=== PATIENT | male | born 1970 | race Caucasian/White ===

== ENCOUNTER 2023-06-16 20:59 | Inpatient (IN) | payer OTHER, SELFPAY ==
[2023-06-16 16:48] VITALS: BP 145/94
[2023-06-16 17:34] LABS: Urine Albumin 2+ (Neg - Trace); Urine Bilirubin Negative (Negative); Urine Character Very Cloudy (Clear); Urine Color Yellow; Urine Glucose Negative (Negative); Urine Ketone Negative (Negative); Urine Leukocyte 2+ (Negative); Urine Nitrite Negative (Negative); Urine Occult Blood 2+ (Negative); Urine Urobilinogen Negative (Neg - 1+)
[2023-06-16 17:43] LABS: Urine Bacteria Many (Negative); Urine Red Blood Cell 0-2 /HPF (0-2); Urine White Cell 30-40 /HPF (0-5)
[2023-06-16] MEDS: NSS 1000 IV (17:50)
[2023-06-16] MEDS: ZOFRAN 4 MG IV (17:50)
--- NOTE | 2023-06-16 17:53 | ED.GENMED ---
History of Present Illness
General
Chief Complaint: Male Genito-Urinary Symptoms
Source: patient
Time Seen by Provider: 06/16/23 17:03
Travel History
Have you had any contact with someone who has COVID-19?: No
Do you have any symptoms of coronavirus? Fever > 100 degrees, chills, cough, shortness of breath, sore throat, loss of taste or smell, muscle aches, or headache?: No
History of Present Illness
History of Present Illness:
52-year-old male with past medical history of hypertension, hyperlipidemia, previous urinary tract infection status post nephrectomy and urostomy with reversal presenting to the emergency department for evaluation after he started with urinary
frequency/urgency/dysuria, cloudy malodorous urine which started yesterday, today had chills and right-sided flank pain accompanied with dry heaves no vomiting. Patient notes that he had completed urinary tract infections in the past and his been
on multiple antibiotics before for urinary tract infections. He notes his last treated UTI was about 6 months ago. He denies any testicular pain or edema, abdominal pain or any other concerns presently. Has not been on any antibiotics recently.
Past History
Past History
ED Past Medical History: HTN, Hypercholesterolemia and Other (UTI)
ED Past Surgical History: Bowel resection and Urological
Social History
Tobacco: Non-smoker
Alcohol: None
Drug: None
Personal:
Living: with family
Employment: Employed
Review of Systems
Review of Systems
All Other Systems: ROS reviewed and negative except as documented in HPI and ROS
Phy Exam
Physical Exam
Physical Exam:
GENERAL: Alert , ill-appearing
EYE: clear conjunctiva b/l
HEAD: NCAT
ENT: o/p clr, mmm.
CARDIAC: Borderline tachycardic rate and rhythm.
LUNGS: Clear breath sounds bilaterally, no acute respiratory distress, no wheezes/rales/rhonchi
ABDOMEN: Soft, without focal tenderness, no r/g, mild right CVA tenderness, negative Mcclain sign, no tenderness at McBurney's point
NEUROLOGICAL: Alert and oriented
SKIN: Warm and dry, skin intact.
MUSCULOSKELETAL: No edema, well perfused.
PSYCH: Normal and appropriate interaction.
Scores
Heart Failure Risk
Heart Failure Risk Score: Not Applicable
Heart Score for Chest Pain Patients
STEMI patient?: Not applicable
Withdrawal Assessment of Alcohol
Withdrawal Assessment Completed?: Not applicable
Course
Orders/Labs/Results
Orders:
Orders
06/16/23 17:21
Urinalysis Reflex To Culture Routine
Date Specimen was Collected: 06/16/23
Time Specimen was Collected: 16:59
Urine Microscopic Reflex Cult Routine
Urine Culture Routine
[facility] Source: U
Specimen Description:
Date Specimen was Collected: 06/16/23
Time Specimen was Collected: 16:59
06/16/23 17:39
0.9% Sodium Chloride 1000 ml [Nss] 1,000 ml IV BOLUS
Ondansetron Injectable [Zofran] 4 mg IV NOW STA
06/16/23 17:41
CT Abd/pel Without Iv Or Oral Urgent
Comment:
Reason For Exam: flank pain, fever
06/16/23 17:46
Blood Culture Q30M
[facility] Source: Blood/Venous
Specimen Description:
Blood Culture Q30M
[facility] Source: Blood/Venous
Specimen Description:
06/16/23 17:48
Complete Blood Count/With Diff Urgent
Comprehensive Metabolic Panel Urgent
Lactic Acid Q4H
Comment: CANCEL 2nd LACTIC ACID IF 1st LACTIC ACID IS LESS THAN 2
06/16/23 19:26
CefTRIAXone [Rocephin] 1,000 mg IV NOW STA
06/16/23 20:23
Acetaminophen [Tylenol] 1,000 mg PO NOW STA
Metoclopramide [Reglan] 10 mg IV NOW STA
Abnormal Lab Results
06/16/23 06/16/23
17:21 17:48
WBC 13.0 H 10^3/uL
(4.8-10.8)
RBC 4.42 L 10^6/uL
(4.70-6.10)
Hct 37.0 L %
(39.0-52.0)
MPV 11.4 H fL
(7.4-10.4)
Absolute Neuts (auto) 11.1 H 10^3/uL
(1.4-6.5)
Absolute Lymphs (auto) 0.9 L 10^3/uL
(1.2-3.4)
Absolute Monos (auto) 0.9 H 10^3/uL
(0.1-0.6)
Neutrophils % 85.7 H %
(42.2-75.2)
Lymphocytes % 6.8 L %
(20.5-51.1)
Carbon Dioxide 20 L mmol/L
(22-30)
Glucose 116 H mg/dl
(70-99)
Total Bilirubin 1.5 H mg/dl
(0.2-1.3)
Ur Occult Blood Reflex 2+ A
(Negative)
Leukocyte Esterase Rfl 2+ A
(Negative)
Urine WBC (Reflex) 30-40 A /HPF
(0-5)
Urine Bacteria (Reflex) Many A
(Negative)
Urine Albumin (Reflex) 2+ A
(Neg - Trace)
06/16/23 17:48
06/16/23 17:48
Vital Signs
Initial and Last Documented VS:
Initial Vital Signs
Temp Pulse Resp BP Pulse Ox
100 F 106 18 145/94 99
06/16/23 16:48 06/16/23 16:48 06/16/23 16:48 06/16/23 16:48 06/16/23 16:48
Last Documented Vital Signs
Temp Pulse Resp BP Pulse Ox
97.7 F 85 18 138/79 99
06/16/23 20:03 06/16/23 20:03 06/16/23 20:03 06/16/23 20:03 06/16/23 20:03
MDM/Problems Addressed
Differential Diagnosis Includes:
Cystitis, pyelonephritis, infected kidney stone, acute kidney injury
MDM/Problems Addressed:
52-year-old male presenting department for evaluation of suspected urinary tract infection. On arrival here patient was found to be febrile and mildly tachycardic. Given his history I do have significant concern for
urosepsis/bacteremia/pyelonephritis. Will check labs including blood cultures and lactic acid. Urinalysis was already from triage. Will order a noncontrast CT scan. Disposition pending but will have low threshold to admit.
Chronic conditions affecting care: Other (Previous urostomy is in chronic UTIs)
*Radiology
Radiology exam reviewed: radiology read reviewed
*Pulse Oximetry
Patient hypoxic: no
*Critical Care Note
Total Time (30-74mins, 75-104mins- exclusive of procedures): Not Applicable
Data Reviewed
Review of Other/Old Records Reveals: Labs
Source: patient
Patient Management
Discussion with other providers: Hospitalist and Plant Physiologist
Escalation/DeEscalation of care consider admission/obs:
Patient CT scan shows the following:
IMPRESSION:
1. 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 Severe distention of the right intrarenal collecting system, right renal pelvis, and right proximal ureter. Mild right perinephric inflammation suggesting ACUTE RIGHT PYELONEPHRITIS
superimposed upon a chronic right ureteral obstruction and chronic distention of the right intrarenal collecting system.
2. � Tiny 1 mm calcification in the right side of the pelvis which could be located in the right distal ureter or outside of the ureter (calcified phlebolith).
3. 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
4. � Mild diffuse urinary bladder wall thickening with mild surrounding inflammation suggesting ACUTE CYSTITIS.
5. � Severe diffuse hepatic steatosis.
6. � Mild splenomegaly.
7. � Sacral dysraphism with partial sacral agenesis.
8:19 PM: I notified hospitalist team who accepts for continued evaluation and treatment. Urology was also notified and will evaluate patient in the morning. They agree with plan for IV antibiotics and if patient's creatinine is rising or he
continues to feel unwell urology believes patient may need IR to place a nephrostomy tube. Patient is in agreement with this treatment plan.
ED Attending Note
-
Portions of this chart may have been created with voice recognition software.� Occasional wrong word or��sound alike� substitutions may have occurred due to the inherent limitations of voice recognition software.
Discharge Plan
Departure
Patient Disposition: Admit
Date of Disposition: 06/16/23
Time of Disposition: 20:20
Presentation/result/management discussed w/ accepting MD/DO: Hospitalist
Discharge Problem:
Acute pyelonephritis
Prescriptions:
No Action
atorvastatin 20 mg tablet
20 mg PO DAILY
allopurinol 100 mg tablet
100 mg PO BID
sildenafil 100 mg tablet
100 mg PO DAILY PRN (Reason: ed)
spironolactone 25 mg tablet
25 mg PO DAILY
methenamine hippurate 1 gram tablet
1 g PO BID@0800,1730
amlodipine 10 mg tablet
10 mg PO DAILY
losartan 100 mg tablet
100 mg PO DAILY
Qulipta 10 mg tablet
10 mg PO DAILY
Referrals:
Juan Stevens MD [Family Provider] -
Interventions
Interventions:
*Risk Screen - Suicide Last Done: 06/16/23 16:48
*General Assessment Last Done: 06/16/23 16:48
*Neglect/Abuse Screening Last Done: 06/16/23 16:48
*ED COVID-19 Vaccine History Last Done: 06/16/23 16:51
ED-Male Genitourinary Assessment Last Done: 06/16/23 17:23
[2023-06-16 18:29] LABS: % Basophils 0.2 % (0-2); % Eosinophils 0.1 % (0-6); % Immature Granulocytes 0.3 % (0-0.5); % Lymphocytes 6.8 % (20.5-51.1); % Monocytes 6.9 % (1.7-9.3); % Neutrophils 85.7 % (42.2-75.2); Absolute Lymphocytes 0.9 10^3/uL (1.2-3.4); Absolute Monocytes 0.9 10^3/uL (0.1-0.6); Absolute Neutrophils 11.1 10^3/uL (1.4-6.5); Hemoglobin 13.1 g/dL (13.0-18.0); Mean Corp Hgb Conc. 35.4 g/dL (33.0-37.0); Mean Corpuscular Hgb 29.6 pg (27.0-31.0); Mean Corpuscular Volume 83.7 fL (80.0-94.0); Mean Platelet Volume 11.4 fL (7.4-10.4); Nucleated Red Blood Cells % 0 % (-); Platelet Count 138 10^3/uL (130-400); Red Blood Cell Count 4.42 10^6/uL (4.70-6.10); Red Cell Dist. Width 13.2 % (11.5-14.5)
[2023-06-16 18:39] LABS: ALT (SGPT) 16 U/L (0-50); AST (SGOT) 23 U/L (17-59); Albumin 4.7 g/dl (3.5-5.0); Alkaline Phosphatase 90 U/L (38-126); Blood Urea Nitrogen 14 mg/dl (9-20); Calcium 8.9 mg/dl (8.4-10.2); Carbon Dioxide 20 mmol/L (22-30); Chloride 106 mmol/L (98-107); Glucose 116 mg/dl (70-99); Potassium 3.7 mmol/L (3.5-5.1); Sodium 135 mmol/L (135-145); Total Bilirubin 1.5 mg/dl (0.2-1.3); Total Protein 7.4 g/dl (6.3-8.2); eGFR > 60.00
[2023-06-16 18:42] LABS: Lactic Acid 1.2 mmol/L (0.7-2.0)
[2023-06-16] MEDS: ROCEPHIN 1000 MG IV (19:31)
[2023-06-16 20:03] VITALS: BP 138/79
--- NOTE | 2023-06-16 20:44 | HPS.HSE ---
Family Physician
-
Family Physician: Juan Stevens
Chief Complaint
-
urinary burning
History of Present Illness
52-year-old male past medical history of solitary right kidney, prior urinary tract infection status post right nephrostomy/urostomy with reversal, hypertension, hyperlipidemia, small bowel obstruction status post bowel resection, IBS, migraines,
presenting for urinary frequency/urgency and burning with urination, cloudy malodorous urine which started yesterday. Today he had chills and fever and right-sided flank pain/abdominal pain associated dry heaving without vomiting. He has had many
frequent UTIs in the past most recently 6 months ago. He denies any abdominal pain. He denies any blood in the urine. He is making less urine than usual.
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 He he had obstruction secondary to stricture of the right kidney status post nephrostomy/urostomy with reversal when he was very young around 3 years old.
Medical History
Past Medical History
Past Medical History: Reports Other (solitary right kidney, prior urinary tract infection status post right nephrostomy/urostomy with reversal, hypertension, hyperlipidemia, small bowel obstruction status post bowel resection, IBS, migraines)
Past Surgical History: Reports Urological
Social History
Tobacco: Non-smoker
Alcohol: None
Drug: None
Family History
Family History: Not pertinent
Allergies / Home Medications
Allergies reflects when Allergies were last updated in [facility].
Home Medications with original date entered in [facility]
Allergy/Medication List:
Allergies
Allergy/AdvReac Type Severity Reaction Status Date / Time
ciprofloxacin [From Cipro] Allergy Unknown Verified 06/16/23 16:49
clindamycin Allergy Unknown Verified 06/16/23 16:49
sumatriptan [From Imitrex] Allergy Unknown Verified 07/20/09 13:42
sumatriptan succinate Allergy Unknown Verified 07/20/09 13:42
[From Imitrex]
Home Medications
allopurinol 100 mg tablet 200 mg PO DAILY 06/16/23
amlodipine 10 mg tablet 10 mg PO HS 06/16/23
ascorbic acid (vitamin C) 1,000 mg tablet (Vitamin C) 1,000 mg PO BID 06/16/23
atogepant 10 mg tablet (Qulipta) 10 mg PO DAILY 06/16/23
atorvastatin 20 mg tablet 20 mg PO QPM 06/16/23
dicyclomine 10 mg capsule 10 mg PO QID PRN ibs flare up 06/16/23
losartan 100 mg tablet 100 mg PO DAILY 06/16/23
methenamine hippurate 1 gram tablet 1 g PO BID@0800,1730 06/16/23
sildenafil 100 mg tablet 100 mg PO DAILY PRN ed 06/16/23
spironolactone 25 mg tablet 25 mg PO DAILY 06/16/23
Review of Systems
-
History Source: Patient
A 12 point ROS was completed and negative except as noted: Yes
Constitutional: Reports No Symptoms
EENT: Reports No Symptoms
Respiratory: Reports No Symptoms
Cardiac: Reports No Symptoms
Abdomen/GI: Reports See HPI
: Reports See HPI
Musculoskeletal: Reports No Symptoms
Skin: Reports No Symptoms
Neurological: Reports No Symptoms
Endocrine: Reports No Symptoms
Hematologic/Lymphatic: Reports No Symptoms
Psych: Reports No Symptoms
Physical Exam
Vital Signs
Vital Signs
Temp Pulse Resp BP Pulse Ox
97.7 F 85 18 138/79 99
06/16/23 20:03 06/16/23 20:03 06/16/23 20:03 06/16/23 20:03 06/16/23 20:03
Physical Exam
General: Well Developed, Well Nourished and No Apparent Distress
HEENT: NormoCephalic, Moist mucous membranes and Atraumatic
Respiratory: Clear
Cardiac: S1/S2 and Regular Rhythm; No Murmur or Rub
GI: Soft, Non Tender, Non Distended and Normal Bowel Sounds; No Organomegaly
Rectal: Deferred by Provider
Genito-urinary: Costovertebral angle tend (right )
Musculoskeletal: No Clubbing, No Cyanosis and No Edema
Skin: No Rash
Neuro: Nonfocal/grossly intact
Laboratory Results
-
06/16/23 17:48
06/16/23 17:48
Laboratory Results
Lactic Acid Cancelled 06/16/23 21:45
Total Bilirubin 1.5 mg/dl (0.2-1.3) H 06/16/23 17:48
AST 23 U/L (17-59) 06/16/23 17:48
ALT 16 U/L (0-50) 06/16/23 17:48
Alkaline Phosphatase 90 U/L (38-126) 06/16/23 17:48
Data Reviewed
-
Lab Data: Labs Reviewed by me
Old Records: Reviewed
Impression/Plan
-
IMPRESSION:
PLAN:
# Sepsis (fever at home, leukocytosis ) acute right pyelonephritis/severe right hydroureteronephrosis on chronic right ureteral obstruction in the setting of solitary right kidney
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
-IV fluids
-Urine culture/blood cultures
-Cefepime
-Zofran, Dilaudid for nausea and pain respectively
-N.p.o.
-Urology consulted
-If patient clinically worsens or renal function worsens would potentially need right-sided nephrostomy tube
Essential hypertension
-Continue spironolactone, amlodipine, losartan
Hyperlipidemia
-Continue statin
Gout
-Continue allopurinol
History of small bowel obstruction status post bowel resection
IBS
Migraine history
-Continue Qulipta
Full code
DVT prophylaxis- heparin
N.p.o.
[2023-06-16] MEDS: TYLENOL 1000 MG PO (20:50)
[2023-06-16] MEDS: REGLAN 10 MG IV (20:50)
[2023-06-17 00:09] VITALS: BP 126/77
[2023-06-17 02:19] VITALS: BP 124/72
[2023-06-17] MEDS: NSS 1000 IV ×3 (02:26→17:01)
[2023-06-17] MEDS: NORVASC 10 MG PO ×2 (02:30→21:47)
[2023-06-17] MEDS: MAXIPIME 2000 MG IV ×3 (03:26→23:13)
[2023-06-17 05:47] VITALS: BP 124/75
[2023-06-17 06:14] LABS: % Basophils 0.2 % (0-2); % Eosinophils 0.1 % (0-6); % Immature Granulocytes 0.4 % (0-0.5); % Monocytes 8.1 % (1.7-9.3); % Neutrophils 79.2 % (42.2-75.2); Absolute Immature Granulocytes 0.1 10^3/uL (0-0.05); Absolute Lymphocytes 1.5 10^3/uL (1.2-3.4); Absolute Neutrophils 9.7 10^3/uL (1.4-6.5); Hematocrit 33.9 % (39.0-52.0); Hemoglobin 11.9 g/dL (13.0-18.0); Mean Corp Hgb Conc. 35.1 g/dL (33.0-37.0); Mean Corpuscular Volume 85.4 fL (80.0-94.0); Mean Platelet Volume 11.8 fL (7.4-10.4); Nucleated Red Blood Cells % 0 % (-); Platelet Count 130 10^3/uL (130-400); Red Blood Cell Count 3.97 10^6/uL (4.70-6.10); Red Cell Dist. Width 13.4 % (11.5-14.5); White Blood Cell Count 12.3 10^3/uL (4.8-10.8)
[2023-06-17 06:23] LABS: ALT (SGPT) 15 U/L (0-50); AST (SGOT) 19 U/L (17-59); Albumin 3.8 g/dl (3.5-5.0); Alkaline Phosphatase 81 U/L (38-126); Blood Urea Nitrogen 14 mg/dl (9-20); Calcium 8.1 mg/dl (8.4-10.2); Carbon Dioxide 20 mmol/L (22-30); Chloride 111 mmol/L (98-107); Estimated Creatinine Clearance 85 ml/min; Glucose 122 mg/dl (70-99); Potassium 3.6 mmol/L (3.5-5.1); Sodium 139 mmol/L (135-145); Total Bilirubin 1.6 mg/dl (0.2-1.3); Total Protein 6.2 g/dl (6.3-8.2); eGFR > 60.00
[2023-06-17] MEDS: STERILE WATER FOR INJECTION IV (06:26)
[2023-06-17 07:38] VITALS: BP 130/71
[2023-06-17] MEDS: VITAMIN C 1000 MG PO ×2 (08:41→19:21)
[2023-06-17] MEDS: ALDACTONE 25 MG PO (08:42)
[2023-06-17] MEDS: COZAAR 100 MG PO (08:42)
[2023-06-17] MEDS: ZYLOPRIM 200 MG PO (08:42)
[2023-06-17] MEDS: HEPARIN 5000 UNITS SC ×2 (08:43→19:21)
--- NOTE | 2023-06-17 08:50 | W.PN.URO.CBU ---
Today's Communication / Plan
-
await cs=xs continue prexsent care no dietary resrictons no op room
Assessment / Plan
-
sepsis syndrome waitng cxs but improved H/o uti since age 3 solitary cogenital solitary rt kidney with hydro biut significantly betteroniv abs
Diagnosis
-
Date of Service: June 17, 2023
-
Patient Diagnosis:ascending complex uti in pt withcongenitally malroted solitary rt kidney and h/o utis since age 3 with colovesical fistial aty that time
Post Op Day:
Subjective
-
much better no nausea les pain
Objective
-
Vital Signs
Temp Pulse Resp BP Pulse Ox
98.8 F 60 15 130/71 100
06/17/23 07:38 06/17/23 07:38 06/17/23 07:38 06/17/23 07:38 06/17/23 07:38
Intake and Output
06/16/23 06/17/23 06/18/23
06:59 06:59 06:59
Intake Total 1200 / 1200
Balance 1200 / 1200
Intake:
IV fluids (Total) 1200 / 1200
nss 1200 / 1200
Other:
Number of unmeasured voidings 2
Laboratory Results
06/17/23 05:33
06/17/23 05:33
Review of Systems
-
: Dysuria and Flank Pain
Physical Exam
-
General - well developed, well nourished, no acute distress
Chest - clear bilaterally
Abdomen - soft, non-tender, positive bowel sounds, no CVAT, no incisional pain or distention
Genitalia - normal
Rectal - normal
Skin - warm & dry with no rash
Neuro - AOx3, no motor deficits
Extremities - no clubbing, no cyanosis, no edema
Incision - clean, dry
Dressing - clean, dry, intact
Counseling
-
continue presnet
Care Review
Data Reviewed
Discussed with: Nursing
CT Scan: Image Pers Reviewed
--- NOTE | 2023-06-17 09:24 | EDRN ---
Attending TT to obtain updated diet order. currently NPO but consult was completed
--- NOTE | 2023-06-17 11:38 | CM ---
CM reviewed medical records. CM met with patient in room. Patient confirmed demographics. Patient lives independently with . Patient confirmed history of VN after needing home IV ABTS. Not currently on service. Patient has no history of SNF or
DME. Patient is active with his PCP. Patient uses [facility] in [place] for medication services.
Patient would be agreeable to VN if needed on discharge.
PLAN: Home
--- NOTE | 2023-06-17 11:43 | W.PN.HOSP.TC ---
Today's Communication/Plan
-
Monitor vital signs
see plan
cw abx
follow urine and bcx
Monitor leukocytosis
Urology following
Assessment / Plan
Assessment / Plan
General: Well Developed, Well Nourished and No Apparent Distress
HEENT: NormoCephalic, Moist mucous membranes
Respiratory: Clear
Cardiac: S1/S2 and Regular Rhythm; No Murmur or Rub
GI: Soft, Non Tender, Non Distended
Genito-urinary: right costovertebral angle tenderness
Musculoskeletal: No Edema
Skin: No Rash
Neuro: Nonfocal/grossly intact
Sepsis 2/2 acute right pyelonephritis/severe right hydroureteronephrosis on chronic right ureteral obstruction in the setting of solitary right kidney
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
-Urine culture/blood cultures pending
-cw Cefepime
-Urology following, no plans for any intervention at this time.
CT 06/15 with solitary right kidney with severe right hydro utero nephrosis. Acute right pyelonephritis.
-If patient clinically worsens or renal function worsens would potentially need right-sided nephrostomy tube
Essential hypertension
-Continue spironolactone, amlodipine, losartan
Hyperlipidemia
-Continue statin
Gout
-Continue allopurinol
History of small bowel obstruction status post bowel resection
IBS
Migraine history
-Continue Qulipta
Full code
DVT prophylaxis- heparin
Anticipated Discharge: > 48 hours
Subjective/Interval History
-
Date of Service: June 17, 2023
denies pain
Objective Data
-
Labs:
Laboratory Results
06/17/23
05:33
WBC 12.3 H
Hgb 11.9 L
Hct 33.9 L
Plt Count 130
Sodium 139
Potassium 3.6
Chloride 111 H
Carbon Dioxide 20 L
BUN 14
Creatinine 1.2
Glucose 122 H
Calcium 8.1 L
Total Bilirubin 1.6 H
AST 19
ALT 15
Alkaline Phosphatase 81
Vital Signs:
Vital Signs
Temp Pulse Resp BP Pulse Ox
98.8 F 60 15 130/71 100
06/17/23 07:38 06/17/23 07:38 06/17/23 07:38 06/17/23 07:38 06/17/23 07:38
I&O
06/16/23 06/17/23 06/18/23
06:59 06:59 06:59
Intake Total 1200 / 1200
Balance 1200 / 1200
[2023-06-17] MEDS: STERILE WATER FOR INJECTION 10 ML IV ×2 (12:43→23:14)
[2023-06-17] MEDS: NSS IV (15:20)
[2023-06-17 15:22] VITALS: BMI 37.5
[2023-06-17 15:29] VITALS: BP 135/70
[2023-06-17] MEDS: LIPITOR 20 MG PO (17:01)
[2023-06-17] MEDS: BENTYL 10 MG PO (19:21)
[2023-06-17 23:01] VITALS: BP 114/66
[2023-06-18] MEDS: NSS 1000 IV (01:47)
[2023-06-18 07:30] VITALS: BP 126/77
[2023-06-18] MEDS: VITAMIN C 1000 MG PO ×2 (08:23→19:34)
[2023-06-18] MEDS: ALDACTONE 25 MG PO (08:23)
[2023-06-18] MEDS: COZAAR 100 MG PO (08:23)
[2023-06-18] MEDS: ZYLOPRIM 200 MG PO (08:24)
[2023-06-18] MEDS: HEPARIN 5000 UNITS SC ×2 (08:24→19:33)
[2023-06-18 08:29] LABS: % Basophils 0.3 % (0-2); % Eosinophils 1.3 % (0-6); % Immature Granulocytes 0.3 % (0-0.5); % Lymphocytes 17.3 % (20.5-51.1); % Monocytes 8.9 % (1.7-9.3); % Neutrophils 71.9 % (42.2-75.2); Absolute Eosinophils 0.1 10^3/uL (0-0.7); Absolute Lymphocytes 1.1 10^3/uL (1.2-3.4); Absolute Monocytes 0.6 10^3/uL (0.1-0.6); Absolute Neutrophils 4.5 10^3/uL (1.4-6.5); Hematocrit 31.9 % (39.0-52.0); Hemoglobin 11.1 g/dL (13.0-18.0); Mean Corp Hgb Conc. 34.8 g/dL (33.0-37.0); Mean Corpuscular Hgb 30.2 pg (27.0-31.0); Mean Corpuscular Volume 86.7 fL (80.0-94.0); Mean Platelet Volume 11.7 fL (7.4-10.4); Nucleated Red Blood Cells % 0 % (-); Platelet Count 119 10^3/uL (130-400); Red Blood Cell Count 3.68 10^6/uL (4.70-6.10); Red Cell Dist. Width 13.6 % (11.5-14.5); White Blood Cell Count 6.3 10^3/uL (4.8-10.8)
[2023-06-18 09:08] LABS: ALT (SGPT) 15 U/L (0-50); AST (SGOT) 20 U/L (17-59); Albumin 3.5 g/dl (3.5-5.0); Alkaline Phosphatase 77 U/L (38-126); Blood Urea Nitrogen 11 mg/dl (9-20); Calcium 7.9 mg/dl (8.4-10.2); Carbon Dioxide 20 mmol/L (22-30); Chloride 111 mmol/L (98-107); Estimated Creatinine Clearance 107 ml/min; Glucose 105 mg/dl (70-99); Potassium 3.9 mmol/L (3.5-5.1); Sodium 138 mmol/L (135-145); Total Bilirubin 0.9 mg/dl (0.2-1.3); Total Protein 5.8 g/dl (6.3-8.2); eGFR > 60.00
[2023-06-18] MEDS: STERILE WATER FOR INJECTION 10 ML IV ×2 (11:05→23:01)
[2023-06-18] MEDS: MAXIPIME 2000 MG IV ×2 (11:06→23:01)
[2023-06-18] MEDS: TYLENOL 650 MG PO ×2 (11:06→23:58)
--- NOTE | 2023-06-18 11:57 | W.PN.HOSP.TC ---
Today's Communication/Plan
-
Monitor vital signs and see plan
Follow blood cultures
Urine culture growing gram-negative rods
Continue with antibiotics
Urology following
Assessment / Plan
Assessment / Plan
General: Well Developed, Well Nourished and No Apparent Distress
HEENT: NormoCephalic, Moist mucous membranes
Respiratory: Clear
Cardiac: S1/S2 and Regular Rhythm; No Murmur or Rub
GI: Soft, Non Tender, Non Distended
Genito-urinary: right costovertebral angle tenderness
Musculoskeletal: No Edema
Skin: No Rash
Neuro: Nonfocal/grossly intact
Sepsis 2/2 acute right pyelonephritis/severe right hydroureteronephrosis on chronic right ureteral obstruction in the setting of solitary right kidney
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
-Urine culture with gram-negative bacilli/blood cultures NGTD
-cw Cefepime
-Urology following, no plans for any intervention at this time.
CT 06/15 with solitary right kidney with severe right hydro utero nephrosis. Acute right pyelonephritis.
-If patient clinically worsens or renal function worsens would potentially need right-sided nephrostomy tube
Essential hypertension
-Continue spironolactone, amlodipine, losartan
Hyperlipidemia
-Continue statin
Gout
-Continue allopurinol
History of small bowel obstruction status post bowel resection
IBS
Migraine history
-Continue Qulipta
Full code
DVT prophylaxis- heparin
Anticipated Discharge: 24 - 48 hours
Subjective/Interval History
-
Date of Service: June 18, 2023
Denies abdominal pain
Objective Data
-
Labs:
Laboratory Results
06/18/23
08:12
WBC 6.3
Hgb 11.1 L
Hct 31.9 L
Plt Count 119 L
Sodium 138
Potassium 3.9
Chloride 111 H
Carbon Dioxide 20 L
BUN 11
Creatinine 0.9
Glucose 105 H
Calcium 7.9 L
Total Bilirubin 0.9
AST 20
ALT 15
Alkaline Phosphatase 77
Vital Signs:
Vital Signs
Temp Pulse Resp BP Pulse Ox
98.2 F 61 18 126/77 99
06/18/23 07:30 06/18/23 07:30 06/18/23 07:30 06/18/23 07:30 06/18/23 07:30
I&O
06/17/23 06/18/23 06/19/23
06:59 06:59 06:59
Intake Total 1200 / 1200 700 / 700
Output Total 225 / 225
Balance 1200 / 1200 475 / 475
[2023-06-18] MEDS: NSS IV (12:10)
--- NOTE | 2023-06-18 15:05 | W.PN.URO.CBU ---
Today's Communication / Plan
-
await cxs ok to d/c on targetyed po abs
Assessment / Plan
-
sepsis syndrome waitng cxs but improved H/o uti since age 3 solitary cogenital solitary rt kidney with hydro biut significantly betteroniv abs
Diagnosis
-
Date of Service: June 18, 2023
-
Patient Diagnosis:
Post Op Day:
Patient Diagnosis:ascending complex uti in pt withcongenitally malroted solitary rt kidney and h/o utis since age 3 with colovesical fistial aty that time
Post Op Day:
Subjective
-
much better
Objective
-
Vital Signs
Temp Pulse Resp BP Pulse Ox
98.2 F 61 18 126/77 99
06/18/23 07:30 06/18/23 07:30 06/18/23 07:30 06/18/23 07:30 06/18/23 07:30
Intake and Output
06/17/23 06/18/23 06/19/23
06:59 06:59 06:59
Intake Total 1200 / 1200 700 / 700
Output Total 225 / 225
Balance 1200 / 1200 475 / 475
Intake:
IV fluids (Total) 1200 / 1200 700 / 700
nss 1200 / 1200
Output:
Urine, Voided 225 / 225
Other:
Number of unmeasured voidings 2
Number of approximated MODERATE 2
amounts of urine
Laboratory Results
06/18/23 08:12
06/18/23 08:12
Review of Systems
-
: No Symptoms
Physical Exam
-
General - well developed, well nourished, no acute distress
Chest - clear bilaterally
Abdomen - soft, non-tender, positive bowel sounds, no CVAT, no incisional pain or distention
Genitalia - normal
Rectal - normal
Skin - warm & dry with no rash
Neuro - AOx3, no motor deficits
Extremities - no clubbing, no cyanosis, no edema
Incision - clean, dry
Dressing - clean, dry, intact
Counseling
-
no gu changes
Care Review
Data Reviewed
Discussed with: Nursing
--- NOTE | 2023-06-18 15:36 | CM ---
Chart reviewed and will follow for discharge planning needs for patient.
Plan; Home when stable.
[2023-06-18 16:15] VITALS: BP 116/71
[2023-06-18] MEDS: LIPITOR 20 MG PO (17:49)
[2023-06-18] MEDS: ZOFRAN 4 MG IV (19:40)
[2023-06-18] MEDS: NORVASC 10 MG PO (21:11)
[2023-06-18 23:59] VITALS: BP 135/72
[2023-06-19 07:30] VITALS: BP 127/77
[2023-06-19] MEDS: ZYLOPRIM 200 MG PO (08:19)
[2023-06-19] MEDS: VITAMIN C 1000 MG PO (08:20)
[2023-06-19] MEDS: HEPARIN 5000 UNITS SC (08:20)
[2023-06-19] MEDS: ALDACTONE 25 MG PO (08:21)
[2023-06-19] MEDS: COZAAR 100 MG PO (08:22)
[2023-06-19 08:57] LABS: % Basophils 0.8 % (0-2); % Eosinophils 3.3 % (0-6); % Immature Granulocytes 0.3 % (0-0.5); % Lymphocytes 27.2 % (20.5-51.1); % Neutrophils 59.4 % (42.2-75.2); Absolute Eosinophils 0.1 10^3/uL (0-0.7); Absolute Monocytes 0.3 10^3/uL (0.1-0.6); Absolute Neutrophils 2.2 10^3/uL (1.4-6.5); Hematocrit 32.8 % (39.0-52.0); Hemoglobin 11.2 g/dL (13.0-18.0); Mean Corp Hgb Conc. 34.1 g/dL (33.0-37.0); Mean Corpuscular Hgb 29.7 pg (27.0-31.0); Nucleated Red Blood Cells % 0 % (-); Platelet Count 128 10^3/uL (130-400); Red Blood Cell Count 3.77 10^6/uL (4.70-6.10); Red Cell Dist. Width 13.2 % (11.5-14.5); White Blood Cell Count 3.7 10^3/uL (4.8-10.8)
[2023-06-19 09:27] LABS: ALT (SGPT) 22 U/L (0-50); AST (SGOT) 30 U/L (17-59); Albumin 3.5 g/dl (3.5-5.0); Alkaline Phosphatase 86 U/L (38-126); Blood Urea Nitrogen 11 mg/dl (9-20); Calcium 8.3 mg/dl (8.4-10.2); Carbon Dioxide 23 mmol/L (22-30); Chloride 110 mmol/L (98-107); Estimated Creatinine Clearance 120 ml/min; Glucose 97 mg/dl (70-99); Potassium 3.7 mmol/L (3.5-5.1); Sodium 137 mmol/L (135-145); Total Bilirubin 0.7 mg/dl (0.2-1.3); Total Protein 5.8 g/dl (6.3-8.2); eGFR > 60.00
--- NOTE | 2023-06-19 09:48 | W.PN.URO.CBU ---
Today's Communication / Plan
-
per hospitalist
Assessment / Plan
-
sepsis syndrome waitng cxs but improved H/o uti since age 3 solitary cogenital solitary rt kidney with hydro biut significantly betteroniv abs
Diagnosis
-
Date of Service: June 19, 2023
-
Patient Diagnosis:
Post Op Day:
Patient Diagnosis:
Post Op Day:
Patient Diagnosis:ascending complex uti in pt withcongenitally malroted solitary rt kidney and h/o utis since age 3 with colovesical fistial aty that time
Post Op Day:
Subjective
-
asymptomatic
Objective
-
Vital Signs
Temp Pulse Resp BP Pulse Ox
97.7 F 53 18 127/77 100
06/19/23 07:30 06/19/23 08:21 06/19/23 07:30 06/19/23 08:21 06/19/23 07:30
Intake and Output
06/18/23 06/19/23 06/20/23
06:59 06:59 06:59
Intake Total 700 / 700 840 / 840
Output Total 225 / 225
Balance 475 / 475 840 / 840
Intake:
Oral fluids 840 / 840
IV fluids (Total) 700 / 700
Output:
Urine, Voided 225 / 225
Other:
Number of approximated MODERATE 2 4
amounts of urine
Laboratory Results
06/19/23 07:23
06/19/23 07:23
Review of Systems
-
: No Symptoms
Physical Exam
-
General - well developed, well nourished, no acute distress
Chest - clear bilaterally
Abdomen - soft, non-tender, positive bowel sounds, no CVAT, no incisional pain or distention
Genitalia - normal
Rectal - normal
Skin - warm & dry with no rash
Neuro - AOx3, no motor deficits
Extremities - no clubbing, no cyanosis, no edema
Incision - clean, dry
Dressing - clean, dry, intact
Counseling
-
per hospitalist
--- NOTE | 2023-06-19 10:57 | CM ---
Chart reviewed and plan is to home when stable.
Plan; Home when stable, no needs.
[2023-06-19] MEDS: MAXIPIME 2000 MG IV (11:36)
[2023-06-19] MEDS: STERILE WATER FOR INJECTION 10 ML IV (11:36)
--- NOTE | 2023-06-19 12:03 | PTCARENOTE ---
Reported to the provider that the patient stated he had foul smelling urine with urgency. Previously urgency had resolved. Awaiting orders if necessary.
--- NOTE | 2023-06-19 12:05 | PTCARENOTE ---
Reported to provider WBCs 6.3 yesterday ---> 3.7 today
--- NOTE | 2023-06-19 13:12 | W.PN.HOSP.TC ---
Addendum entered and electronically signed by Leeroy Parra MD 06/19/23 15:04:
Total time spent on d/c = 32 min. This included today's physical exam, progress note, review of laboratory and diagnostic data, preparation of discharge documents and prescriptions, and discussions about the pt's hospital course and discharge plan
with the patient and other medical customer service representative involved in the patient's care.
Original Note:
Today's Communication/Plan
-
possible d/c later today after seen by ID
Assessment / Plan
Assessment / Plan
Gen: NAD, AAOx3.
Eyes: EOMI, PERRLA, no scleral icterus.
Neck: supple.
CV: RRR, +S1/S2, no m/r/g.
Resp: CTAB, no rales, wheezes, or rhonchi.
Abd: +BS, soft, NT, ND
Skin: No rashes.
Neuro: CN 2-12 intact, non-focal.
Psych: Normal mood and affect.
CT A/P 06/16/23:
1. 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 Severe distention of the right intrarenal collecting system, right renal pelvis, and right proximal ureter. Mild right perinephric inflammation suggesting ACUTE RIGHT PYELONEPHRITIS
superimposed upon a chronic right ureteral obstruction and chronic distention of the right intrarenal collecting system.
2. � Tiny 1 mm calcification in the right side of the pelvis which could be located in the right distal ureter or outside of the ureter (calcified phlebolith).
3. 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
4. � Mild diffuse urinary bladder wall thickening with mild surrounding inflammation suggesting ACUTE CYSTITIS.
5. � Severe diffuse hepatic steatosis.
6. � Mild splenomegaly.
7. � Sacral dysraphism with partial sacral agenesis.
Sepsis due acute right pyelonephritis/severe right hydroureteronephrosis on chronic right ureteral obstruction:
-pt with solitary right kidney and chronic right ureteral obstruction due to stricture of right mid ureter
-imaging above
-UCx with pansensitive E coli, BCxs NGTD
-currently on Cefepime
-Urology following, no plans for any intervention at this time
-leukocytosis has resolved, pt afebrile throughout hospitalization
-c/s ID for final abx recs
Other problems:
CYNTHIA, resolved
Essential hypertension: cont spironolactone/amlodipine/losartan
Hyperlipidemia: cont statin
Gout: cont allopurinol
h/o SBO s/p bowel resection
IBS
Migraine headaches: Continue Qulipta
FULL/heparin
Anticipated Discharge: Within 24 hours
Subjective/Interval History
-
Date of Service: June 19, 2023
No new complaints.
Objective Data
-
Labs:
Laboratory Results
06/19/23
07:23
WBC 3.7 L
Hgb 11.2 L
Hct 32.8 L
Plt Count 128 L
Sodium 137
Potassium 3.7
Chloride 110 H
Carbon Dioxide 23
BUN 11
Creatinine 0.8
Glucose 97
Calcium 8.3 L
Total Bilirubin 0.7
AST 30
ALT 22
Alkaline Phosphatase 86
Vital Signs:
Vital Signs
Temp Pulse Resp BP Pulse Ox
97.7 F 53 18 127/77 100
06/19/23 07:30 06/19/23 08:21 06/19/23 07:30 06/19/23 08:21 06/19/23 07:30
I&O
06/18/23 06/19/23 06/20/23
06:59 06:59 06:59
Intake Total 700 / 700 840 / 840
Output Total 225 / 225
Balance 475 / 475 840 / 840
--- NOTE | 2023-06-19 15:07 | W.DCSUMMARY ---
Discharge Summary
Discharge Data
Date of Admission: 06/16/23
Date of Discharge: 06/19/23
-
Pending Results: No
Hospital Course
Primary diagnoses:
Sepsis due acute right pyelonephritis with severe right hydroureteronephrosis on chronic right ureteral obstruction
Secondary diagnoses:
Solitary right kidney
Acute kidney injury
Obesity due to excess calories
Essential hypertension
Hyperlipidemia
Gout
h/o small bowel obstruction s/p bowel resection
Irritable bowel syndrome
Migraine headaches
Consultants:
Urology
Infectious disease
Imaging:
CT A/P 06/16/23:
1. 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 Severe distention of the right intrarenal collecting system, right renal pelvis, and right proximal ureter. Mild right perinephric inflammation suggesting ACUTE RIGHT PYELONEPHRITIS
superimposed upon a chronic right ureteral obstruction and chronic distention of the right intrarenal collecting system.
2. � Tiny 1 mm calcification in the right side of the pelvis which could be located in the right distal ureter or outside of the ureter (calcified phlebolith).
3. 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
4. � Mild diffuse urinary bladder wall thickening with mild surrounding inflammation suggesting ACUTE CYSTITIS.
5. � Severe diffuse hepatic steatosis.
6. � Mild splenomegaly.
7. � Sacral dysraphism with partial sacral agenesis.
52-year-old male presented with a chief complaint of dysuria as outlined in the H&P done on admission. Hospital course per problem list:
Sepsis due acute right pyelonephritis/severe right hydroureteronephrosis on chronic right ureteral obstruction: Imaging above. Patient presented with dysuria as well as chills, fever and right-sided flank and abdominal pain. He had a leukocytosis
of 13.0. Temperature was 100.0 �F. He was placed on cefepime. Urine culture grew pansensitive E. coli. Blood cultures were no growth to date at the time of discharge. He was seen in consultation by urology and there were no plans for any
urological intervention.. The patient's leukocytosis resolved. He was seen in consultation by infectious disease and transition to Bactrim for 1 further week of antibiotic therapy on discharge.
Discharge Plan
-
Patient Disposition: Home (Routine Discharge)
Discharge Diagnosis/Procedures: Sepsis due acute right pyelonephritis/severe right hydroureteronephrosis on chronic right ureteral obstruction
Condition: Good
Diet: No restrictions
Activity: As tolerated
Driving Restrictions: As prior to admission
Bathing Restrictions: None
Blood Work: BMP and CBC in 1 week, script from PCP
Referrals:
Juan Stevens MD [Family Provider] - in less than 1 week
Prescriptions:
New
sulfamethoxazole-trimethoprim 800-160 mg Tablet
1 tab PO BID Qty: 15 0RF
Continued
atorvastatin 20 mg tablet
20 mg PO QPM
allopurinol 100 mg tablet
200 mg PO DAILY
sildenafil 100 mg tablet
100 mg PO DAILY PRN (Reason: ED )
spironolactone 25 mg tablet
25 mg PO DAILY
methenamine hippurate 1 gram tablet
1 g PO BID@0800,1730
amlodipine 10 mg tablet
10 mg PO HS
losartan 100 mg tablet
100 mg PO DAILY
Qulipta 10 mg tablet
10 mg PO DAILY
ascorbic acid (vitamin C) [Vitamin C] 1,000 mg Tablet
1,000 mg PO BID
dicyclomine 10 mg Capsule
10 mg PO QID PRN (Reason: IBS flare up)
Discharge Orders:
Discharge Patient (As Directed); Ordered 06/19/23
Ordered By: Leeroy Parra
[2023-06-19] MEDS: BACTRIM DS 800 MG/160 MG 1 TABLET PO (15:39)
--- NOTE | 2023-06-19 17:35 | CON.ID ---
Consultation
-
Date/Time Consultation Requested: 06/18/22 13:49
Date/Time Consultation Performed: 06/18/22 17:35
Requesting Provider: Dr Parra
Performing Provider: Dr Kothari
Reason for Consultation: uti
Chief Complaint / Past History
Chief Complaint
flank tenderness
History of Present Illness
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 He is on suppresive hiprex/vitamin c for chronic UTIs and has previously been on suppressive bactrim. He
presented here for new onset flank pain, dysuria and was found to have the above chronic abnormalities as well as findings suggesting pylenephritis/cystitis on imaging. Also fevers, chills. Started on cefepime and has completed 3 days of cefepime,
then noted some regression of dysuria and ID is consulted for assistance with management.
Past History
Additional Past Medical History:
(solitary right kidney, prior urinary tract infection status post right nephrostomy/urostomy with reversal, hypertension, hyperlipidemia, small bowel obstruction status post bowel resection, IBS, migraines)
Past Surgical History: Urological
Allergy History:
ciprofloxacin [From Cipro] Allergy (Verified 06/16/23 16:49)
Unknown
clindamycin Allergy (Verified 06/16/23 16:49)
Unknown
sumatriptan [From Imitrex] Allergy (Verified 07/20/09 13:42)
Unknown
sumatriptan succinate [From Imitrex] Allergy (Verified 07/20/09 13:42)
Unknown
Medications Reviewed: Yes
Social History
Tobacco: Non-Smoker
Alcohol: None
Drug: None
Family History
Family History: Not Pertinent
Review of Systems
Review of Systems
General: Fever and Chills
All systems: All other systems were reviewed and were negative
Vital Signs
Temp Pulse Resp BP Pulse Ox
97.7 F 53 18 127/77 100
06/19/23 07:30 06/19/23 08:21 06/19/23 07:30 06/19/23 08:21 06/19/23 07:30
Physical Exam
Physical Exam
Constitutional: No Acute Distress
Cardiovascular: Regular Rate and S1/S2; Negative Murmur or Rub
Pulmonary: Clear and Symmetric; Negative Wheezes, Rales or Rhonchi
Gastrointestinal: Soft, Non Tender, Non Distended and Normal Bowel Sounds
Genito-Urinary: Negative Suprapubic Tenderness or CVA Tenderness (with firm percussion)
Skin: Warm and Dry; Negative Rash or Jaundice
Lab / Diagnostic Study Results
06/19/23 07:23
06/19/23 07:23
Abs Immat Gran (auto) 0.0 10^3/uL (0-0.05) 06/19/23 07:23
Absolute Neuts (auto) 2.2 10^3/uL (1.4-6.5) 06/19/23 07:23
Absolute Lymphs (auto) 1.0 10^3/uL (1.2-3.4) L 06/19/23 07:23
Absolute Monos (auto) 0.3 10^3/uL (0.1-0.6) 06/19/23 07:23
Absolute Basos (auto) 0.0 10^3/uL (0-0.2) 06/19/23 07:23
Immature Gran % 0.3 % (0-0.5) 06/19/23 07:23
Neutrophils % 59.4 % (42.2-75.2) 06/19/23 07:23
Lymphocytes % 27.2 % (20.5-51.1) 06/19/23 07:23
Monocytes % 9.0 % (1.7-9.3) 06/19/23 07:23
Eosinophils % 3.3 % (0-6) 06/19/23 07:23
Basophils % 0.8 % (0-2) 06/19/23 07:23
Lactic Acid Cancelled 06/16/23 21:45
Microbiology Results
Micro:
06/16/23 17:21 Urine Culture - Final
Urine Escherichia coli
06/17/23 15:53 MRSA Screen - Final
Nose No Methicillin Resistant Staphylococcus aureus isolated.
06/16/23 17:46 Blood Culture - Preliminary
Blood/Venous No Growth in 48 hours- Final report to follow
06/16/23 17:46 Blood Culture - Preliminary
Blood/Venous No Growth in 48 hours- Final report to follow
Assessment / Plan
Complicated UTI
Recurrent UTIs
Malrotated kidney with chronic stricture/hydronephrosis
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
- urine culture 100 K sensitive E coli
- has reported a relapse in symptoms today
- plan to switch to bactrim x 1 week; high bioavailability oral therapy
- follow up with his urologist
== END 2023-06-19 16:37 | disposition home or self-care (01) | DRG 872 ==
LOC: 4 WEST ACU 20:59
PROVIDERS: Internal Medicine; Physician Assistant Medical; ADMITTING PHYSICIAN Hospitalist; ATTENDING PHYSICIAN Internal Medicine; CONSULT PHYSICIAN Internal Medicine Infectious Disease; CONSULT PHYSICIAN Specialist; EMERGENCY PHYSICIAN Emergency Medicine; FAMILY PHYSICIAN Family Medicine
DX: A41.9 Sepsis, unspecified organism (principal); N13.6 Pyonephrosis; N17.9 Acute kidney failure, unspecified; Q60.0 Renal agenesis, unilateral; E66.09 Other obesity due to excess calories; Z68.37 Body mass index [BMI] 37.0-37.9, adult; I10 Essential (primary) hypertension; M10.9 Gout, unspecified; K58.9 Irritable bowel syndrome, unspecified; G43.909 Migraine, unspecified, not intractable, without status migrainosus; B96.20 Unspecified Escherichia coli [E. coli] as the cause of diseases classified elsewhere; K76.0 Fatty (change of) liver, not elsewhere classified
CPT/HCPCS: 74176; 80053; 81003; 81015; 83605; 85025; 87040; 87070; 87077; 87086; 87186; 93005; 96361; 96374; 96375; 99285